=== PATIENT | female | born 1990 | race Two or more races ===

== ENCOUNTER 2021-08-03 22:04 | Emergency (ER) | payer MEDICAID ==
[~2021-08-03] VITALS: Ht 160 cm; Wt 80.3 kg
[2021-08-03 22:04] VITALS: BP 112/77
[~2021-08-03 22:04] MED LIST: PREN-129 OR
[2021-08-03 23:22] LABS: Urine Bacteria NONE SEEN /hpf (None Seen); Urine Blood 3+ /uL (Negative); Urine Mucus FEW (None Seen); Urine Specific Gravity 1.019 (1.001-1.035); Urine WBC 30 /hpf (0 - 5)
== END 2021-08-04 03:06 | disposition left against medical advice (07) ==
LOC: ER 22:05
DX: R33.9 Retention of urine, unspecified (principal); Z53.21 Procedure and treatment not carried out due to patient leaving prior to being seen by health care provider
CPT/HCPCS: 81001